=== PATIENT | female | born 2000 | race Hispanic/Latino ===

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

== ENCOUNTER 2023-03-24 11:56 | Emergency (ER) | payer SELFPAY ==
[2023-03-24] VITALS (13 sets, daily range): BP systolic 110–122; BP diastolic 57–101
[~2023-03-24] VITALS: Ht 157.5 cm; Wt 45.3 kg
[2023-03-24 12:44] LABS: BASO% 0.4 % (0-3); EOS% 1.2 % (0-8); HEMATOCRIT 36.4 % (37.0-47.0); HEMOGLOBIN 12.2 g/dl (12.0-16.0); IMMATURE GRANULOCYTES 0.1 % (0.0-5.0); LYMPH% 18.9 % (15-41); MEAN CELL VOLUME 89.2 fL CALC (80.0-100.0); MEAN CORPUSCULAR HGB 29.9 pG CALC (26.0-32.0); MEAN CORPUSCULAR HGB CONC 33.5 g/dL CAL (32.0-36.0); MONO% 7.5 % (2-13); NEUT# 4.85 thou/uL (2.00-7.15); NEUT% 71.9 % (42-76); RED BLOOD COUNT 4.08 mill/uL (4.20-5.60); RED CELL DISTRI WIDTH 12.3 % (11.5-15.5)
[2023-03-24 13:02] LABS: ALBUMIN 4.6 g/dL (3.2-5.0); ANION GAP 12 (6-22 (CALC)); BUN 7 mg/dL (7-17); BUN/CREATININE RATIO 15 (12-20 (CALC)); CARBON DIOXIDE 22 mmol/l (22-30); CHLORIDE 107 mmol/l (95-108); CREATININE 0.5 mg/dL (0.5-1.0); GFR FOR AFR.AMER. > 60 ML/MIN (>=60 (CALC)); GFR OTHER RACES > 60 ML/MIN (>=60 (CALC)); POTASSIUM 3.6 mmol/l (3.5-5.1); SGOT/AST 21 u/l (14-36); SODIUM 137 mmol/l (137-146); TOTAL PROTEIN 7.4 g/dL (6.3-8.2)
[2023-03-24 13:03] LABS: ALKALINE PHOSPHATASE 77 u/l (38-126); BILIRUBIN, TOTAL 0.2 mg/dL (0.02-1.3)
[2023-03-24 14:03] LABS: BETA-HCG, QUANT(RESULT NUMBER) 71570 mIU/mL
== END 2023-03-24 16:58 | disposition home or self-care (01) | DRG 833 ==
LOC: ED 11:56
PROVIDERS: Family Medicine
DX: O20.0 Threatened abortion (principal); Z3A.01 Less than 8 weeks gestation of pregnancy